=== PATIENT | male | born 1970 | race Caucasian/White ===

== ENCOUNTER 2020-03-28 09:48 | Emergency (ER) | payer OTHER, SELFPAY ==
[~2020-03-28] VITALS: Ht 182.9 cm; Wt 103.6 kg
--- NOTE | 2020-03-28 10:27 | REPVR ---
PROCEDURE INFORMATION: Exam: XR Left Ankle Exam date and time: 03/28/2020 9:59 AM Age: 49 years old Clinical indication: Pain; Ankle; Left; Additional info: Trauma TECHNIQUE: Imaging protocol: XR Left ankle. Views: 3 or more views. COMPARISON: No relevant prior studies available. FINDINGS: Bones/joints: Bones are intact and the ankle mortise is preserved. No acute fracture or dislocation. Mild posterior and plantar calcaneal spurring. Soft tissues: Generalized soft tissue swelling. Ankle joint effusion. IMPRESSION: 1. Soft tissue swelling with an ankle joint effusion. 2. No acute bony abnormality is identified. Electronically signed by: Hima Trammell On 03/28/2020 10:27:42 AM
[2020-03-28 11:19] VITALS: BP 148/81
== END 2020-03-28 11:21 | disposition home or self-care (01) ==
LOC: M ED 09:48
DX: S93.402A Sprain of unspecified ligament of left ankle, initial encounter (principal); Y92.9 Unspecified place or not applicable; Y93.9 Activity, unspecified; Y99.9 Unspecified external cause status

== ENCOUNTER 2025-02-03 10:10 | Emergency (ER) | payer OTHER ==
[~2025-02-03] VITALS: Ht 177.8 cm; Wt 102.6 kg
[2025-02-03] MEDS ORDERED: AMOX875T2 (10:19)
[2025-02-03] MEDS: NS (Normal Saline) 0.9% 1,000 ML IV ONE (12:01)
[2025-02-03] MEDS: KETOROLAC 30 MG/ML 1 ML VIAL IV ONE (12:01)
[2025-02-03] MEDS ORDERED: ISOVUE-370 76% 100 ML VIAL As Ordered ONE (12:05)
[2025-02-03 12:14] LABS: BASO # 0.1 10^3/uL (0.0-0.2); BASO % 0.5 % (0.0-1.0); EOS # 0.2 10^3/uL (0.0-0.5); EOS % 1.5 % (0.0-3.0); LYMPH # 1.8 10^3/uL (1.5-5.0); LYMPH % 12.7 % (24.0-44.0); MONO # 1.2 10^3/uL (0.0-0.8); MONO % 8.6 % (2.0-8.0); NEUTROPHILS # 10.8 10^3/uL (1.5-8.5); NEUTROPHILS % 76.3 % (36.0-66.0); PLATELET COUNT, AUTOMATED 303 10^3/uL (150-450)
[2025-02-03 12:18] LABS: ERYTHROCYTE SEDIMENTATION RATE 33 mm/hr (0-20)
[2025-02-03] MEDS: AMPICILLIN SOD/SULBACTAM SOD 3 GM in DEXTROSE 5% (D5W) MINI-BAG PLU 100 ML IV ONE (12:39)
[2025-02-03 14:11] VITALS: TEMP 98.4
[2025-02-03] MEDS: BENZOCAINE 20% GEL 9 GM TUBE TOP ONE (14:17)
[2025-02-03 14:25] VITALS: O2SAT 97
[2025-02-03 14:30] VITALS: BP 132/79
[2025-02-03] MEDS ORDERED: AMOX875T2 PO (14:37)
[2025-02-03] MEDS: dexAMETHasone 4 MG/ML 1 ML VIAL IV ONE (14:43)
== END 2025-02-03 14:49 | disposition home or self-care (01) ==
LOC: M ED 10:10
DX: L03.211 Cellulitis of face (principal); K04.7 Periapical abscess without sinus; K02.9 Dental caries, unspecified; F17.200 Nicotine dependence, unspecified, uncomplicated; Z79.2 Long term (current) use of antibiotics
CPT/HCPCS: 64400; 70491; 80047; 85025; 85652; 87040; 96361; 96365; 96375; 99284; J0295; J1100; J1885; Q9967